=== PATIENT | female | born 1945 | race Caucasian/White ===

== ENCOUNTER 2019-07-22 01:56 | Emergency (ER) | payer OTHER, MEDICAID ==
[~2019-07-22] VITALS: Ht 157.5 cm; Wt 72.6 kg
[2019-07-22 02:08] VITALS: BP 179/76
--- NOTE | 2019-07-22 02:15 | NUR ---
PT BIBA C/O DIFFICULTY BREATHING, FEVER, GENERALIZED WEAKNESS. PT RETURNED FROM [facility] YESTERDAY. PT RECEIVED DIALYSIS AT 0300 YESTERDAY. PT SKIN WARM TO TOUCH. TEMP 101.4 ORAL. PT TACHY AT THIS TIME. RR DEEP, PT PLACED ON 3L NC. O2 SAT 97%. SKIN APPROPRIATE SKIN COLOR, MOIST, AND WARM. MEDHX: HTN, DM, RENAL DISEASE ALLERGIES: DENIES
[2019-07-22] MEDS ORDERED: NACL 0.9% 1,000 ML IV ONE (02:17)
[2019-07-22] MEDS ORDERED: ACETAMINOPHEN EXTRA STRENGTH 500 MG TAB PO ONE (02:20)
--- NOTE | 2019-07-22 02:40 | NUR ---
PT STATES 5/10 HEADACHE. DENIES NAUSEA AT THIS TIME. VSS. WILL CONTINUE TO MONITOR.
[2019-07-22 02:47] LABS: HEMOGLOBIN 11.3 g/dL (12.0-16.0); MEAN CORPUSCULAR VOLUME 90.6 fL (80-94)
[2019-07-22 02:52] LABS: HEMATOCRIT 34.9 % (36-48); MEAN CORPUSCULAR HEMOGLOBIN 29 pg (27-31); MEAN CORPUSCULAR HGB CONC 32 g/dL (33-37); PLATELET COUNT (AUTO) 270 K/uL (140-450); RED BLOOD CELL COUNT(AUTO) 3.86 MIL/uL (4.20-5.40); RED CELL DISTRIBUTION WIDTH 16.6 % (11.6-13.7); WHITE BLOOD COUNT (AUTO) 15.1 K/uL (4.8-10.8)
--- NOTE | 2019-07-22 03:00 | NUR ---
PT REMAINS ON 3L NC. O2 SAT 98%. RR EVEN AND UNLABORED. PT APPEARS TO BE IN NO APPARENT DISTRESS AT THIS TIME. VSS. DAUGHTER AT BEDSIDE. WILL CONTINUE TO MONITOR.
[2019-07-22 03:04] LABS: PROTHROMBIN TIME 9.6 secs (10.8-13.4)
--- NOTE | 2019-07-22 03:05 | NUR ---
PT STATES SHE MAKES MINIMAL URINE. UNABLE TO RETRIEVE URINE AT THIS TIME.
[2019-07-22 03:09] LABS: LYMPHOCYTES % (MANUAL) 0 % (20-46); MONOCYTES % (MANUAL) 5 % (5-12)
[2019-07-22 03:10] LABS: ALBUMIN 3.1 g/dL (3.4-5.0); ANION GAP 19.1 (8-16); ASPARTATE AMINOTRANSFERASE 25 U/L (15-37); CARBON DIOXIDE 21.6 mmol/L (21-32); CHLORIDE 104 mmol/L (98-107); GLUCOSE 105 mg/dL (74-106); LIPASE 204 U/L (73-393); SODIUM SERUM 139 mmol/L (136-145); TOTAL BILIRUBIN 0.5 mg/dL (0.0-1.0); UREA NITROGEN, BLOOD 53 mg/dL (7-18)
[2019-07-22 03:14] LABS: CREATININE 6.4 mg/dL (0.6-1.3)
[2019-07-22 03:15] LABS: POTASSIUM 5.7 mmol/L (3.5-5.1)
--- NOTE | 2019-07-22 03:20 | NUR ---
XRAY AT BEDSIDE.
[2019-07-22] MEDS ORDERED: AZITHROMYCIN 500 MG in DEXTROSE 5% 250 ML IV ONE (03:40)
[2019-07-22] MEDS ORDERED: cefTRIAXone 1,000 MG VIAL ONE (03:56)
[2019-07-22] MEDS ORDERED: AZITHROMYCIN 500 MG INJ VIAL IV ONE (03:57)
[2019-07-22] MEDS ORDERED: PHO667 PO (04:09)
[2019-07-22] MEDS ORDERED: CARV3.12 PO (04:10)
[2019-07-22] MEDS ORDERED: HYDR100T49 PO (04:11)
[2019-07-22] MEDS ORDERED: LISI-420 PO (04:12)
[2019-07-22] MEDS ORDERED: VITA1TAB44 PO (04:12)
[2019-07-22] MEDS ORDERED: ATOR10TA PO (04:14)
[2019-07-22] MEDS ORDERED: HYDR100T79 PO (04:15)
[2019-07-22] MEDS ORDERED: NIFE60TE5 PO (04:16)
[2019-07-22] MEDS ORDERED: CETI10TA71 PO (04:17)
[2019-07-22] MEDS ORDERED: TICA90TA PO (04:18)
--- NOTE | 2019-07-22 04:25 | NUR ---
PT RECEIVED TYLENOL. TEMP RECHECK 98.1 ORAL.
--- NOTE | 2019-07-22 04:31 | NUR ---
PT RESTING IN BED WITH EYES CLOSED. NO COMPLAINTS OF PAIN AT THIS TIME. RR EVEN AND UNLABORED. APPARENT RISE AND FALL OF CHEST. VSS. DAUGHTER AT BEDSIDE.
--- NOTE | 2019-07-22 05:35 | NUR ---
Note flip in EDM - 07/22/19 at 0602 by [facility] GAVE REPORT TO ARCELIA AT [facility]. MADE AWARE OF PTS STATUS. PT EXPECTED TO ROOM 1235.
--- NOTE | 2019-07-22 05:35 | NUR ---
GAVE REPORT TO ARCELIA AT [facility]. MADE AWARE OF PTS STATUS. PT EXPECTED TO ROOM 1235. ADMITTING DOCTOR PRABHA.
[2019-07-22] MEDS ORDERED: fentaNYL 0.05 MG/ML VIAL IVP ONE (05:40)
[2019-07-22] MEDS ORDERED: KETOROLAC 30 MG/ML VIAL IVP ONE (05:45)
--- NOTE | 2019-07-22 06:03 | NUR ---
Patient to be transferred to [facility]. Is being transferred due to INSURANCE. Receiving facility has accepting physician and available space. ER physician has signed transfer form. Patient or responsible green party has agreed to transfer and signed form. Patient belongings inventoried and will be sent with patient. Copy of nursing notes, lab reports, EKG, Physicians Orders and X-rays to be sent with patient. Report called to ARCELIA at receiving facility. [facility] ambulance service has been called for transfer. ETA is [phone].
[2019-07-22 06:05] VITALS: BP 169/90
== END 2019-07-22 06:05 | disposition short-term general hospital (02) ==
LOC: MED 01:56
DX: J18.9 Pneumonia, unspecified organism (principal); I12.0 Hypertensive chronic kidney disease with stage 5 chronic kidney disease or end stage renal disease; N18.6 End stage renal disease; Z99.2 Dependence on renal dialysis; Z98.890 Other specified postprocedural states; Z79.899 Other long term (current) drug therapy
CPT/HCPCS: 36415; 71045; 80053; 83605; 83690; 83880; 84484; 85025; 85610; 87040; 87804; 93005; 96365; 96367; 96375; 99285; J0456; J0696; J1885; J7030; J7060; Q0092; 87186